=== PATIENT | female | born 1955 | race African-American/Black ===

== ENCOUNTER 2016-12-13 15:50 | Emergency (ER) | payer BC, OTHER ==
[2016-12-13 16:16] VITALS: BP 148/83
--- NOTE | 2016-12-13 17:00 | UC ---
Abdominal Pain Female HPI - HPI Summary HPI Summary: LLQ abd pain worsening today with LARA, chills, and poor appetite. No recent illness or other symptoms. Normal BM today. - History of Current Complaint Chief Complaint: UCAbdominalPain Stated Complaint: ABD PAIN,CHILLS,HEADACHE Time Seen by Provider: 12/13/16 16:30 Hx Obtained From: Patient ?: No Onset/Duration: Gradual Onset, Lasting Hours Timing: Constant Severity Initially: Mild Severity Currently: Moderate Location: Discrete At: LLQ Radiates: No Character: Aching, Cramping, Dull, Sharp Aggravating Factor(s): Nothing Alleviating Factor(s): Nothing Associated Signs and Symptoms: Positive: Fever, Decreased Appetite. Negative: Constipation, Blood in Stool, Urinary Symptoms, Vaginal Bleeding Allergies/Adverse Reactions: Allergies Allergy/AdvReac Type Severity Reaction Status Date / Time Aspirin Allergy Tinnitus Verified 12/13/16 16:09 Fluconazole [From Diflucan] Allergy Swelling Verified 12/13/16 16:09 Of Face,Lips,& Throat Home Medications: Home Medications Atorvastatin* [Lipitor*] 10 mg PO 1700 12/13/16 [History Confirmed 12/13/16] Vitamin B Complex TAB* [Complex B-100*] 1 tab PO DAILY 12/13/16 [History Confirmed 12/13/16] PMH/Surg Hx/FS Hx/Imm Hx Endocrine History Of: Denies: Diabetes, Thyroid Disease Cardiovascular History Of: Reports: Hypertension Denies: Cardiac Disorders Respiratory History Of: Denies: COPD, Asthma GI/ History Of: Reports: Gastrointestinal Bleed Denies: Ulcer - Surgical History Surgical History: Yes Surgery Procedure, Year, and Place: melissa; tonsils - Family History Known Family History: Positive: Hypertension - Social History Lives: Alone Alcohol Use: Daily Alcohol Amount: 1 glass of wine per night Substance Use Type: None Smoking Status (MU): Light Every Day Tobacco Smoker Type: Cigarettes Amount Used/How Often: 3 cigs per day Household Exposure Type: Cigarettes - Immunization History Most Recent Influenza Vaccination: never Most Recent Tetanus Shot: Within past 5 years Most Recent Pneumonia Vaccination: never Review of Systems Constitutional: Fever, Chills Skin: Negative Eyes: Negative ENT: Negative Respiratory: Negative Cardiovascular: Negative Gastrointestinal: Abdominal Pain Genitourinary: Negative Motor: Negative Neurovascular: Negative Musculoskeletal: Negative Neurological: Headache Psychological: Negative All Other Systems Reviewed And Are Negative: Yes Physical Exam Triage Information Reviewed: Yes Appearance: Well-Appearing, Well-Nourished, Pain Distress - mild Vital Signs: Initial Vital Signs Temp 100.7 F 12/13/16 16:12 Pulse 105 12/13/16 16:12 Resp 16 12/13/16 16:12 BP 148/83 12/13/16 16:12 Pulse Ox 100 12/13/16 16:12 Vital Signs Reviewed: Yes Eye Exam: Normal Eyes: Positive: Conjunctiva Clear ENT Exam: Normal ENT: Positive: Normal ENT inspection, Hearing grossly normal, Pharynx normal, TMs normal Neck exam: Normal Neck: Positive: Supple, Nontender, No Lymphadenopathy Respiratory Exam: Normal Respiratory: Positive: Chest non-tender, Lungs clear, Normal breath sounds, No respiratory distress, No accessory muscle use Cardiovascular: Positive: No Murmur, Tachycardia Musculoskeletal Exam: Normal Neurological Exam: Normal Neurological: Positive: Alert, Muscle Tone Normal Psychological Exam: Normal Skin Exam: Normal Abd Pain Female Course/Dx - Differential Dx/Diagnosis Provider Diagnoses: LLQ pain, suspect diverticulitis - Physician Notification/Consults Discussed Patient Care With: Dr. Londono Time Discussed With Above Provider: 17:04 Discharge - Discharge Plan Condition: Stable Disposition: TRANS [facility]
== END 2016-12-13 17:50 | disposition short-term general hospital (02) ==
LOC: UCEAST 15:50
DX: R10.32 Left lower quadrant pain (principal); R51 Headache; R63.0 Anorexia; Z88.8 Allergy status to other drugs, medicaments and biological substances; I10 Essential (primary) hypertension
CPT/HCPCS: 81003; 99212; G0463

== ENCOUNTER 2016-12-13 17:31 | Inpatient (IN) | payer BC, OTHER ==
[2016-12-13] MEDS ORDERED: Ondansetron INJ* 2 MG/ML VIAL IV ONE (18:03)
[2016-12-13] MEDS ORDERED: NS 0.9% 1000 ML* 1,000 ML IV ONE (18:03)
[2016-12-13] MEDS ORDERED: Morphine INJ* 4 MG/ML 1 ML SYRINGE IV ONE (18:03)
[2016-12-13 18:42] LABS: Hematocrit 43 % (35-47); Mean Corpuscular HGB Conc 33 g/dl (31-36); Mean Corpuscular Hemoglobin 29 pg (27-31); Mean Corpuscular Volume 88 fL (80-97); Mean Platelet Volume 10 um3 (7.4-10.4); Red Blood Count 4.86 10^6/ul (4.0-5.4); Red Cell Distribution Width 14 % (10.5-15); White Blood Count 16.7 10^3/ul (3.5-10.8)
[2016-12-13 18:43] LABS: Add Diff/Slide Review? Slide Review Added; Comments Flag Yes
[2016-12-13 18:58] LABS: ALT 18 U/L (7-52); AST 16 U/L (13-39); Albumin 4.1 g/dL (3.2-5.2); Alkaline Phosphatase 37 U/L (34-104); Anion Gap 8 mmol/L (2-11); BUN/Creatinine Ratio 12.9 (8-20); Blood Urea Nitrogen 11 mg/dL (6-24); C Reactive Protein 12.01 mg/L (< 5.00); CO2 Carbon Dioxide 29 mmol/L (22-32); Calcium 9.1 mg/dL (8.6-10.3); Chloride 102 mmol/L (101-111); EGFR African American 87.2 (>60); EGFR Non-African American 67.8 (>60); Globulin 3.2 g/dL (2-4); Glucose 92 mg/dL (70-100); Lipase < 10 U/L (11.0-82.0); Potassium 3.5 mmol/L (3.5-5.0); Sodium 139 mmol/L (133-145); Total Protein 7.3 g/dL (6.4-8.9)
[2016-12-13 19:07] LABS: Immature Granulocytes 16 % (0-9); Neutrophil % 75 % (38-83); RBC Morphology Normal (Normal); Reactive Lymph % 2 % (0-6)
[2016-12-13] MEDS ORDERED: NS 0.9% 1000 ML* 1,300 ML IV ONE (19:07)
[2016-12-13] MEDS ORDERED: Piperac/Tazob 3.375 gm in NS* 3.375 GM/100 ML BAG IVPB ONE (19:08)
[2016-12-13] MEDS ORDERED: Iohexol 300* (CONTRAST) 10 ML SDV IV ONE (20:08)
[2016-12-13 20:18] LABS: Urine Bacteria Absent (Absent); Urine Bilirubin Negative (Negative); Urine Glucose Negative (Negative); Urine Nitrite Negative (Negative)
--- NOTE | 2016-12-13 20:30 | RAD ---
INDICATION: Abdominal pain COMPARISON: None TECHNIQUE: Axial source images were obtained from the hemidiaphragms to the symphysis pubis following administration of oral and intravenous contrast. 100 mL Omnipaque 300 was utilized. Coronal and sagittal reconstructed images were acquired. Lung bases: The lung bases are clear. Liver: The liver is normal in size. There are no masses. There is minor intrahepatic ductal dilatation likely secondary to postcholecystectomy state. The common duct is also mildly prominent. Gallbladder: Cholecystectomy. Spleen: The spleen is normal in size. There are no masses. Pancreas: There is no focal pancreatic mass or ductal dilatation. Adrenal glands: There is no evidence of adrenal mass. Kidneys: The kidneys are normal in size and position. There are prompt nephrograms and there is prompt excretion bilaterally. There are no renal parenchymal masses. There is no evidence of nephrolithiasis. Adenopathy: There is no evidence of adenopathy by size criteria. Fluid collections: There are no free or localized fluid collections. Vessels:The IVC appears normal. There are assess chronic changes with aneurysmal dilatation of the aorta. GI tract: There are no acute CT bowel findings. There is no obstruction. The stomach and small bowel appear normal. The ileocecal valve is normal. The appendix is normal. There are moderate diverticula of the descending and sigmoid colon without CT evidence of acute diverticulitis. There is no obstruction. Pelvic organs: The uterus and adnexa appear normal Bladder: There are no bladder masses. Abdominal and pelvic soft tissues: The extraperitoneal abdominal and pelvic soft tissues appear normal.. Osseous structures: There are no acute osseous findings. Other: None IMPRESSION: Moderate diverticula but no CT evidence of acute diverticulitis. Normal appendix. No acute CT findings. No mass or inflammatory changes.
--- NOTE | 2016-12-13 20:31 | ED ---
Zoila, DoctorNeeta scribed for Ekaterina Bar MD on 12/13/16 at 1826 . Abdominal Pain/Female - HPI Summary HPI Summary: 61 year old female arrived to [facility] c/o lower left abdominal pain, chills, LARA, and backache. She reports lower abdominal pain since 11:00 today; she initially rated her pain as a 5/10 and currently rates it as 8/10. She denies any diarrhea /vomiting/dysuria but reports nausea as well as middle back pain and a subjective fever. She is a regular smoker, lives alone, and has a PMHx of HTN and gallbladder removal. - History of Current Complaint Chief Complaint: EDAbdPain Stated Complaint: SENT FROM [facility]-ABD PAIN Time Seen by Provider: 12/13/16 17:47 Hx Obtained From: Patient Onset/Duration: Gradual Onset, Still Present Timing: Hours - onset at 11:00 today Pain Intensity: 8 Pain Scale Used: 0-10 Numeric Location: Discrete At: LLQ Radiates to: Back Associated Signs and Symptoms: Positive: Back Pain, Nausea, Other: - chills, LARA. Negative: Fever, Urinary Symptoms, Vomiting, Diarrhea Allergies/Adverse Reactions: Allergies Allergy/AdvReac Type Severity Reaction Status Date / Time Aspirin Allergy Tinnitus Verified 12/13/16 17:44 Fluconazole [From Diflucan] Allergy Swelling Verified 12/13/16 17:44 Of Face,Lips,& Throat PMH/Surg Hx/FS Hx/Imm Hx Endocrine/Hematology History: Denies: Hx Diabetes, Hx Thyroid Disease Cardiovascular History: Reports: Hx Hypertension Respiratory History: Denies: Hx Asthma, Hx Chronic Obstructive Pulmonary Disease (COPD) GI History: Reports: Hx Gastrointestinal Bleed Denies: Hx Ulcer Sensory History: Reports: Hx Contacts or Glasses - glasses Opthamlomology History: Reports: Hx Contacts or Glasses - glasses - Surgical History Surgery Procedure, Year, and Place: melissa; tonsils Infectious Disease History: Yes Infectious Disease History: Reports: Hx Hepatitis - Hep C Denies: Hx Clostridium Difficile, Hx Human Immunodeficiency Virus (HIV), Hx of Known/Suspected MRSA, Hx Shingles, Hx Tuberculosis, Hx Known/Suspected VRE, Hx Known/Suspected VRSA, History Other Infectious Disease, Traveled Outside the [place] in Last 30 Days - Family History Known Family History: Positive: Hypertension, Diabetes - Social History Occupation: Employed Full-time Lives: Alone Alcohol Use: Daily Alcohol Amount: 1 glass of wine per night Substance Use Type: Reports: None Smoking Status (MU): Light Every Day Tobacco Smoker Type: Cigarettes Amount Used/How Often: 3 cigs per day Review of Systems Positive: Chills. Negative: Fever Positive: Abdominal Pain, Nausea. Negative: Vomiting, Diarrhea Negative: dysuria Positive: Other - back pain Positive: Headache All Other Systems Reviewed And Are Negative: Yes Physical Exam Triage Information Reviewed: Yes Vital Signs On Initial Exam: Initial Vitals Temp Pulse Resp BP Pulse Ox 100.1 F 101 18 134/74 100 12/13/16 17:45 12/13/16 17:45 12/13/16 17:45 12/13/16 17:45 12/13/16 17:45 Vital Signs Reviewed: Yes Appearance: Positive: Well-Appearing, No Pain Distress Skin: Positive: Warm, Skin Color Reflects Adequate Perfusion, Dry Eyes: Positive: EOMI, MADHURI ENT: Positive: Pharynx normal, TMs normal Neck: Positive: Supple, Nontender Respiratory/Lung Sounds: Positive: Clear to Auscultation, Breath Sounds Present. Negative: Rales, Rhonchi, Wheezes Cardiovascular: Positive: RRR. Negative: Murmur, Rub Abdomen Description: Negative: Nontender - LLQ Tendernes, Soft, Distended, Guarding Bowel Sounds: Positive: Present Musculoskeletal: Positive: Strength/ROM Intact. Negative: Edema Left, Edema Right Neurological: Positive: Sensory/Motor Intact, Alert, Oriented to Person Place, Time, CN Intact II-III Psychiatric: Positive: Affect/Mood Appropriate Diagnostics - Vital Signs Vital Signs Temp Pulse Resp BP Pulse Ox 12/13/16 17:45 100.1 F 101 18 134/74 100 - Laboratory Lab Results: 18:30 - Lactic Acid: 2.60 Result Diagrams: 12/13/16 18:30 12/13/16 18:30 Lab Statement: Any lab studies that have been ordered have been reviewed, and results considered in the medical decision making process. Re-Evaluation - Re-Evaluation First Eval Re-Evaluation Time: 20:08 Comment: Discussed treatment plan with pt. Agrees to be admitted to hospital under Dr. Hidalgo (Hospitalist). Abdominal Pain Fem Course/Dx - Course Course Of Treatment: 61 yo female with llq abd pain with wbc of 16 and an elevated lactic, 30cc/kg ns and zosyn given pt accepted for obv by Dr. Hidalgo - Diagnoses Provider Diagnoses: Abdominal pain - Provider Notifications Discussed Care Of Patient With: 20:00 - Discussed pt care with Dr. Hidalgo ( Hospitalist). He agrees to admit pt. Discharge - Discharge Plan Condition: Stable Disposition: ADMITTED TO [facility] The documentation as recorded by the adriánibwaqas, Neeta Gaitan accurately reflects the service I personally performed and the decisions made by me, Ekaterina Bar MD.
--- NOTE | 2016-12-13 21:08 | HP ---
H&P (Free Text) History and Physical: Discussed with Kathleen Sanchez NP. Mrs Dodge is a 61F presenting with abdominal pain, bandemia, & elevated lactic acid with a negative CT abd/pel. Will be admitted for close monitoring, empiric ABXs, & consideration of surgical consultation, if appropriate.
[2016-12-13] MEDS ORDERED: Ondansetron INJ* 2 MG/ML VIAL IV PRN (21:54)
[2016-12-13] MEDS ORDERED: Acetaminophen TAB* 325 MG PO PRN (21:54)
[2016-12-13] MEDS ORDERED: NS 0.9% 1000 ML* 1,000 ML IV SCH (22:00)
--- NOTE | 2016-12-13 22:39 | RAD ---
INDICATION: Fever and abdominal pain COMPARISON: Chest x-ray July 04, 2004 TECHNIQUE: An AP portable view obtained at 2200 hours is submitted. FINDINGS: Bones/Soft Tissues: There are no acute bony findings. Cardiomediastinal: The cardiomediastinal silhouette is normal. Lungs: There are no infiltrates. Pleura: There are no pleural effusions. Other: None IMPRESSION: NO ACTIVE DISEASE.
[2016-12-13] MEDS: Heparin VIAL(*) 5000 UNITS/ML VIAL (FIVE THOUSAND) SUBCUT SCH (23:21)
[2016-12-13] MEDS: Piperac/Tazob 3.375 gm in NS* 3.375 GM/100 ML BAG IVPB SCH (23:49)
[2016-12-13] MEDS: Morphine INJ* 2 MG/ML 1 ML SYRINGE IV PRN (23:51)
[2016-12-14] MEDS: Morphine INJ* 2 MG/ML 1 ML SYRINGE IV PRN ×3 (03:59→12:48)
--- NOTE | 2016-12-14 04:09 | HP ---
HISTORY AND PHYSICAL: DATE OF ADMISSION: 12/13/16 PRIMARY CARE PROVIDER: Dr. Lugo. ATTENDING PHYSICIAN WHILE IN THE HOSPITAL: Nav Hidalgo MD * (report dictated by Artis Sanchez NP). CHIEF COMPLAINT: Abdominal pain. HISTORY OF PRESENT ILLNESS: Mrs. Dodge is a 61-year-old female patient with a history of hypertension, GERD, hyperlipidemia, hepatitis C, tobacco abuse, and history of GI bleed in the past. She comes into the ER today stating that she, this morning, around 11 o'clock developed an onset of left lower quadrant abdominal pain described as an ache, with no associated symptom of nausea or vomiting. She says the pain has been coming and going throughout the day and intensity has been increasing. She denies having any diarrhea. No tarry stools. No blood in the stools. She denies any dysuria. No vaginal discharge. She says that the pain feels like a dull ache and she was concerned because the pain was not getting any better, she was having chills and fevers off and on, and so she decided to come into the ER to be evaluated. She says that she has not had any chest pain or shortness of breath. She denies any back pain and denied having any dysuria or any frequency. The patient presented to the ER and was ultimately found to have a fever. She appeared to be tachycardic. Since she had elevated white count with bandemia, hospitalist service was asked to evaluate for admission. PAST MEDICAL HISTORY: Significant for: 1. Hypertension. 2. Hepatitis C. 3. Tobacco abuse. 4. History of GI bleed. 5. GERD. 6. Hyperlipidemia. PAST SURGICAL HISTORY: She has had a laparoscopic cholecystectomy. HOME MEDICATIONS: According to her recall, include: 1. Amlodipine 5 mg daily. 2. Vitamin B one tablet daily. 3. Multivitamin 1 tablet daily. 4. Toprol-XL 50 mg daily. 5. Calcium carbonate one tablet daily. 6. Lipitor 10 mg daily. 7. Biotin 1 mg daily. 8. Vitamin C 500 mg daily. ALLERGIES: Her allergies to medications include ASPIRIN and DIFLUCAN. FAMILY HISTORY: Mother had a history of CVA and hypertension. Father had a history of diabetes and COPD. SOCIAL HISTORY: She is a smoker, about 3 cigarettes a day. She does drink one to two glasses of wine daily. Surrogate decision maker is her son. REVIEW OF SYSTEMS: There is no documented fever. She denied having any significant weight change. There was no double vision. There is no ear discharge. There is no rhinorrhea, no sore throat. She did admit to having again fever and chills. No dysuria, no frequency. There is no abdominal pain. There is no chest pain. No shortness of breath, no orthopnea. No loss of consciousness. No pruritus. No skin ulceration. Review of 14 systems completed, all others are negative. PHYSICAL EXAMINATION GENERAL: At this time, Mrs. Dodge is a 61-year-old female. She appears to be well nourished, well developed. She does not appear to be in any acute distress. VITAL SIGNS: Reveals blood pressure 124/74 with pulse of 101, respirations are 18, O2 sat 100%, temperature 100.1, pulse now is 94. HEENT: Head is atraumatic, normocephalic. Eyes: EOMs are intact. Sclerae anicteric, not pale. Throat: Oral mucosa appears to be moist. No oropharyngeal erythema. NECK: Supple. LUNGS: Clear to auscultation bilaterally. No wheezes, rales, or rhonchi. HEART: Sounds S1 and S2. Regular rate and rhythm. She is tachycardic. No murmurs, rubs, or gallops. ABDOMEN: Soft, flat. There is tenderness in the left lower quadrant. She did have some CVA tenderness on the left side as well. Bowel sounds are present. EXTREMITIES: Pulses were 2+ throughout. She is able to move all 4 extremities with 5/5 strength. NEUROLOGIC: The patient is awake, alert, and oriented x3. Tongue midline. Development Coordinator are equal. No gross focal deficits. SKIN: Grossly intact. LABORATORY DATA: Labs today revealed WBC of 16.7, RBC of 4.86, hemoglobin 14.0 , hematocrit of 43, platelet count 154. Sodium 139, potassium 3.5, chloride 102 , bicarb 29, BUN 11, creatinine 0.85, glucose 92, lactate 2.6, calcium 9.1, total bili 0.4, AST 16, ALT 18, alk phos 37, CRP of 12, albumin 4.1. Urine showed trace leukocyte esterase, 1+ wbc. he had an abdomen and pelvis CT scan obtained today. The CT scan obtained showed , impression: Moderate diverticula, but no CT evidence of acute diverticulitis. Normal appendix. No acute CT findings. No mass or inflammatory change. Old medical records were reviewed. ASSESSMENT AND PLAN: Mrs. Dodge is a 61-year-old female patient coming into the ER today with complaints of abdominal discomfort, on evaluation was found to be tachycardic, found to be febrile, and found to have an elevated white count. She will be admitted under observation status for: 1. Abdominal pain. The etiology is unclear. Clinically, she is tender in the left lower quadrant. She does have diverticula there. I know there is no diverticulitis on scan, but she certainly clinically could have that. I think for the time being, I will put her on Zosyn, IV normal saline at 125 an hour, she got 2 L. I will do another repeat lactic at 11 o'clock tonight. She has gotten bolus here in the ED. We will repeat her labs in the morning. We will do serial abdominal exam. She does not appear to have an acute abdomen at this point and again, if the pain does not subside after 24 hours of Zosyn, we could consider getting a surgical evaluation, if she is not improving obviously. She is not having any other associated symptoms and I have ordered p.r.n. morphine for pain. 2. Hypertension. Continue the Toprol-XL and amlodipine. 3. Hepatitis C, not an active issue. 4. History of tobacco abuse. I have offered cessation. 5. History of gastroesophageal reflux disease. She does not take medications. We will continue lifestyle modifications. 6. Hyperlipidemia. Continue statin therapy. 7. Deep venous thrombosis prophylaxis. She will be placed on heparin subcu. 8. Code status. Full code. 9. Fluids, electrolytes, nutrition. Clear liquid diet. TIME SPENT: Time spent on admission 60 minutes, greater than half the time spent [id number] with the patient obtaining my history and physical, the other half of the time spent going over the plan of care with the patient and implementing plan of care. I did discuss the plan of care with my attending, Dr. Hidalgo. He is in agreement. ARTIS SANCHEZ NP CC: Dr. Lugo * [id number]/[facility] #: [id number] MTDD
[2016-12-14 06:02] LABS: Hematocrit 34 % (35-47); Hemoglobin 11.4 g/dl (12.0-16.0); Mean Corpuscular HGB Conc 33 g/dl (31-36); Mean Corpuscular Hemoglobin 29 pg (27-31); Mean Corpuscular Volume 87 fL (80-97); Mean Platelet Volume 9 um3 (7.4-10.4); Red Blood Count 3.96 10^6/ul (4.0-5.4); Red Cell Distribution Width 15 % (10.5-15); White Blood Count 15.1 10^3/ul (3.5-10.8)
[2016-12-14] MEDS: Heparin VIAL(*) 5000 UNITS/ML VIAL (FIVE THOUSAND) SUBCUT SCH ×3 (06:15→22:43)
[2016-12-14 06:16] LABS: BUN/Creatinine Ratio 10.9 (8-20); Calcium 7.9 mg/dL (8.6-10.3); EGFR African American 79.5 (>60); EGFR Non-African American 61.9 (>60); Potassium 3.3 mmol/L (3.5-5.0)
[2016-12-14] MEDS: Piperac/Tazob 3.375 gm in NS* 3.375 GM/100 ML BAG IVPB SCH ×2 (07:58→16:06)
--- NOTE | 2016-12-14 08:47 | PN ---
Subjective Date of Service: 12/14/16 Interval History: . Patient reports her abdominal pain is "much much better" but still c/o left and right Lower abdominal pain, described as cramping. Reports pain 2. No N/V/D. Last BM yesterday and was normal. Denies any bloody stools. Reports she is hungry. Reports chills yesterday that have resolved, no known fevers but is noted to have low grade temps since admission but she states she feels asymptomatic to this. Denies SOB, CP. Denies urinary urgency, frequency or burning. Objective Active Medications: Acetaminophen (Tylenol Tab*) 650 mg PO Q4H PRN PRN Reason: FEVER/PAIN Amlodipine Besylate (Norvasc Tab*) 5 mg PO DAILY [facility] Atorvastatin Calcium (Lipitor*) 10 mg PO 1700 [facility] Heparin Sodium (Porcine) (Heparin Vial(*)) 5,000 units SUBCUT Q8HR [facility] Last Admin: 12/14/16 06:15 Dose: Not Given Piperacillin Sod/Tazobactam Sod (Zosyn 3.375 Gm In Ns Premix*) 3.375 gm in 100 mls @ 25 mls/hr IVPB Q8H [facility] Last Admin: 12/14/16 07:58 Dose: 25 mls/hr Metoprolol Succinate (Toprol Xl Tab*) 50 mg PO DAILY [facility] Morphine Sulfate (Morphine Inj (Syringe)*) 2 mg IV Q4H PRN PRN Reason: PAIN - MILD Last Admin: 12/14/16 03:59 Dose: 2 mg Ondansetron HCl (Zofran Inj*) 4 mg IV Q6H PRN PRN Reason: NAUSEA Vital Signs 12/13/16 12/13/16 12/13/16 22:00 22:28 22:29 Temperature 100.2 F Pulse Rate 92 94 Respiratory 16 16 Rate Blood Pressure 124/62 139/82 (mmHg) O2 Sat by Pulse 97 99 Oximetry 12/13/16 12/13/16 12/14/16 22:54 23:51 00:51 Temperature 100.2 F Pulse Rate 94 Respiratory 16 16 16 Rate Blood Pressure 139/82 (mmHg) O2 Sat by Pulse 98 Oximetry 12/14/16 12/14/16 12/14/16 03:59 04:00 04:59 Temperature 99.9 F Pulse Rate 82 Respiratory 16 16 16 Rate Blood Pressure 121/62 (mmHg) O2 Sat by Pulse 100 Oximetry 12/14/16 07:17 Temperature 99.1 F Pulse Rate 85 Respiratory 16 Rate Blood Pressure 130/72 (mmHg) O2 Sat by Pulse 99 Oximetry Oxygen Devices in Use Now: None Appearance: 61 yo female laying in bed in NAD. A+O x3 Eyes: No Scleral Icterus, PERRLA Ears/Nose/Mouth/Throat: NL Teeth, Lips, Gums, Mucous Membranes Moist Neck: NL Appearance and Movements; NL JVP Respiratory: Symmetrical Chest Expansion and Respiratory Effort, Clear to Auscultation Cardiovascular: NL Sounds; No Murmurs; No JVD, RRR, No Edema Abdominal: No Hepatosplenomegaly, - - soft, nondistended, tender to palpation right and left lower quads. No rebound tenderness or guarding. Lymphatic: No Cervical Adenopathy Extremities: No Edema, No Clubbing, Cyanosis Skin: No Rash or Ulcers, No Nodules or Sclerosis Neurological: Alert and Oriented x 3, NL Muscle Strength and Tone Lines/Tubes/Other Access: Clean, Dry and Intact Peripheral IV Nutrition: Taking PO's Result Diagrams: 12/14/16 05:52 12/14/16 05:52 Additional Lab and Data: 18:30 - Lactic Acid: 2.60 Microbiology and Other Data: Microbiology 12/13/16 22:48 Influenza Types A,B Antigen (KYLEIGH) - Final Nasal Specimen received for Influenza A/B Molecular testing Assess/Plan/Problems-Billing Assessment: 61 yo female with a PMH of HTN, Hep C, current tobacco abuse, Hx of GI bleed who preseted to the ED on 12/13 with c/o abdominal pain. - Patient Problems (1) Abdominal pain Comment: -Much improved since admission, unclear etiology. CT abdomen negative for acute pathology. Presented with leukocytosis of 16K and bands 16 and lactic acid 2.6 - now improving after IVFs and abx. Low grade fevers since admission. Blood cx pending. - plan to advanced diet and monitor. - check labs in am. - continue zosyn - If she develops worsening pain will ask for surgical consult. (2) HTN (hypertension) Comment: - controlled on norvasc and metoprolol. (3) Tobacco abuse Comment: - nicotine replacement - smoking cessation (4) Hepatitis C Comment: - not an active issue (5) DVT prophylaxis Comment: HSQ (6) Full code status Status and Disposition: inpatient with abdominal pain. Plan to DC to home when stable.
[2016-12-14] MEDS: amLODIPine TAB* 5 MG PO SCH (09:19)
[2016-12-14] MEDS: Metoprolol Succinate XL TAB* 50 MG PO SCH (09:19)
[2016-12-14] MEDS: KCL 20 MEQ/100 ML IVPREMIX* 20 MEQ/100 ML BAG IV SCH ×2 (14:07→22:42)
[2016-12-14] MEDS: Nicotine PATCH 14 MG/24 HR* PATCH TRANSDERM SCH (15:56)
[2016-12-14] MEDS ORDERED: Atorvastatin* 10 MG TAB PO SCH (17:00)
[2016-12-14] MEDS ORDERED: Nicotine Patch Removal NOTE PATCH OFF SCH (21:00)
[2016-12-14] MEDS ORDERED: Nicotine Patch Removal NOTE FOLLOW UP SCH (21:00)
[2016-12-15] MEDS: Piperac/Tazob 3.375 gm in NS* 3.375 GM/100 ML BAG IVPB SCH ×2 (01:46→08:16)
[2016-12-15 05:01] LABS: Hematocrit 34 % (35-47); Hemoglobin 11.4 g/dl (12.0-16.0); Mean Corpuscular HGB Conc 33 g/dl (31-36); Mean Corpuscular Hemoglobin 29 pg (27-31); Mean Corpuscular Volume 87 fL (80-97); Mean Platelet Volume 9 um3 (7.4-10.4); Red Blood Count 3.94 10^6/ul (4.0-5.4); Red Cell Distribution Width 14 % (10.5-15); White Blood Count 9.7 10^3/ul (3.5-10.8)
[2016-12-15 05:03] LABS: Add Diff/Slide Review? Slide Review Added
[2016-12-15 05:16] LABS: C Reactive Protein 73.51 mg/L (< 5.00); Calcium 8.2 mg/dL (8.6-10.3); EGFR African American 90.8 (>60); EGFR Non-African American 70.6 (>60); Potassium 3.8 mmol/L (3.5-5.0)
[2016-12-15 05:32] LABS: Immature Granulocytes 8 % (0-9); Neutrophil % 65 % (38-83); RBC Morphology Normal (Normal); Reactive Lymph % 1 % (0-6)
[2016-12-15] MEDS: Heparin VIAL(*) 5000 UNITS/ML VIAL (FIVE THOUSAND) SUBCUT SCH (05:44)
[2016-12-15 08:06] VITALS: BP 98/79
[2016-12-15] MEDS: amLODIPine TAB* 5 MG PO SCH (08:16)
[2016-12-15] MEDS: Metoprolol Succinate XL TAB* 50 MG PO SCH (08:16)
[2016-12-15] MEDS: Nicotine PATCH 14 MG/24 HR* PATCH TRANSDERM SCH (08:18)
--- NOTE | 2016-12-15 11:10 | DCNOTE ---
Subjective Date of Service: 12/15/16 Interval History: Pt reports she feels much better today, increased appetite eating a full breakfast this morning. Mild right and left "cramping abdominal pain" but reports it is almost resolved. No further fever, denies chills. Reports 1 episode of diarrhea this morning reports loose brown stool, no blood noted. No n /v. Denies SOB, CP, cough. Would like to go home today. Objective Active Medications: Acetaminophen (Tylenol Tab*) 650 mg PO Q4H PRN PRN Reason: FEVER/PAIN Amlodipine Besylate (Norvasc Tab*) 5 mg PO DAILY [facility] Last Admin: 12/15/16 08:16 Dose: 5 mg Atorvastatin Calcium (Lipitor*) 10 mg PO 1700 [facility] Last Admin: 12/14/16 17:41 Dose: 10 mg Heparin Sodium (Porcine) (Heparin Vial(*)) 5,000 units SUBCUT Q8HR [facility] Last Admin: 12/15/16 05:44 Dose: Not Given Piperacillin Sod/Tazobactam Sod (Zosyn 3.375 Gm In Ns Premix*) 3.375 gm in 100 mls @ 25 mls/hr IVPB Q8H [facility] Last Admin: 12/15/16 08:16 Dose: 25 mls/hr Metoprolol Succinate (Toprol Xl Tab*) 50 mg PO DAILY [facility] Last Admin: 12/15/16 08:16 Dose: 50 mg Morphine Sulfate (Morphine Inj (Syringe)*) 2 mg IV Q4H PRN PRN Reason: PAIN - MILD Last Admin: 12/14/16 12:48 Dose: 2 mg Nicotine (Nicotine Patch 14 Mg/24 Hr*) 1 patch TRANSDERM Q24HR [facility] Last Admin: 12/15/16 08:18 Dose: Not Given Ondansetron HCl (Zofran Inj*) 4 mg IV Q6H PRN PRN Reason: NAUSEA Pharmacy Profile Note (Nicotine Patch Removal Note*) 1 note PATCH OFF 2100 [facility] Last Admin: 12/14/16 19:43 Dose: Not Given Vital Signs 12/14/16 12/14/16 12/14/16 12:48 13:48 16:02 Temperature 99.3 F Pulse Rate 78 Respiratory 16 16 12 Rate Blood Pressure 118/67 (mmHg) O2 Sat by Pulse 100 Oximetry 12/14/16 12/14/16 12/14/16 18:33 19:38 20:00 Temperature 99.8 F Pulse Rate 86 Respiratory 16 16 Rate Blood Pressure 125/67 (mmHg) O2 Sat by Pulse 97 98 Oximetry 12/14/16 12/15/16 12/15/16 23:08 00:00 03:10 Temperature 99.6 F 99.2 F Pulse Rate 79 73 Respiratory 16 Rate Blood Pressure 134/73 130/69 (mmHg) O2 Sat by Pulse 96 96 97 Oximetry 12/15/16 12/15/16 07:13 07:22 Temperature 98.4 F Pulse Rate 75 Respiratory 16 Rate Blood Pressure 98/79 (mmHg) O2 Sat by Pulse 99 99 Oximetry Oxygen Devices in Use Now: None Appearance: 61 yo well developed female laying in bed A+O x3 in NAD Eyes: No Scleral Icterus, PERRLA Ears/Nose/Mouth/Throat: NL Teeth, Lips, Gums, Mucous Membranes Moist Neck: NL Appearance and Movements; NL JVP Respiratory: Symmetrical Chest Expansion and Respiratory Effort, Clear to Auscultation Cardiovascular: NL Sounds; No Murmurs; No JVD, RRR, No Edema Abdominal: NL Sounds; No Tenderness; No Distention, No Hepatosplenomegaly Extremities: No Edema, No Clubbing, Cyanosis Skin: No Rash or Ulcers, No Nodules or Sclerosis Neurological: Alert and Oriented x 3, NL Sensation, NL Gait, NL Muscle Strength and Tone Lines/Tubes/Other Access: Clean, Dry and Intact Peripheral IV Nutrition: Taking PO's Result Diagrams: 12/15/16 04:51 12/15/16 04:51 Additional Lab and Data: 18:30 - Lactic Acid: 2.60 Microbiology and Other Data: Microbiology 12/13/16 22:48 Influenza Types A,B Antigen (KYLEIGH) - Final Nasal Specimen received for Influenza A/B Molecular testing Assess/Plan/Problems-Billing Assessment: 61 yo female with a PMH of HTN, Hep C, current tobacco abuse, Hx of GI bleed who preseted to the ED on 12/13 with c/o abdominal pain. - Patient Problems (1) Abdominal pain Comment: -Much improved since admission, almost resolved, unclear etiology, possible viral syndrome? CT abdomen negative for acute pathology. Presented with leukocytosis of 16K and bands 16 and lactic acid 2.6 - now resolved. Low grade fevers since admission now resolved. Blood cx no growth Day 1. Urine cx growing group B strep with colony count 10-25K, low suspicion for acute UTI most likely colonized. - Tolerating diet (2) HTN (hypertension) Comment: - controlled on norvasc and metoprolol. (3) Tobacco abuse Comment: - nicotine replacement - smoking cessation (4) Hepatitis C Comment: - not an active issue (5) DVT prophylaxis Comment: HSQ (6) Full code status Status and Disposition: inpatient with abdominal pain. Plan to DC to home today
--- NOTE | 2016-12-16 01:50 | DS ---
DISCHARGE SUMMARY: DATE OF ADMISSION: 12/13/16 DATE OF DISCHARGE: 12/15/16 ATTENDING PHYSICIAN: Dr. Fitzpatrick *(report is dictated by Juan Bernstein NP) PRIMARY CARE PROVIDER: Dr. Lugo. PRIMARY DIAGNOSES: 1. Abdominal pain, unclear etiology. 2. Positive urine culture for group B strep only with colony count of 10,000 to 25,000. 3. Tobacco abuse. SECONDARY DIAGNOSES: 1. Hypertension. 2. History of hepatitis C. 3. History of GI bleed. 4. Gastroesophageal reflux disease. 5. Hyperlipidemia. DISCHARGE MEDICATIONS: 1. Amlodipine 5 mg p.o. daily. 2. Vitamin B complex 1 tab p.o. daily. 3. Multivitamin/mineral 1 tab p.o. daily. 4. Metoprolol succinate-XL 50 mg p.o. daily. 5. Calcium carbonate Plus D 1 tab p.o. daily. 6. Biotin 1 mg p.o. daily. 7. Lipitor 10 mg p.o. daily. 8. Vitamin C 500 mg p.o. daily. New medications at discharge: 1. Augmentin 875 mg p.o. b.i.d. x5 days. HISTORY OF PRESENT ILLNESS AND HOSPITAL COURSE: Please see history and physical by Chuy Sanchez NP, for full admission details, but in summary this is a 61-year-old female who presented to the emergency department on 12/13/16 with report of acute onset of left lower quad abdominal pain described as an ache with no associated symptoms of nausea, vomiting or diarrhea. She reports the pain had been coming and going throughout the day and the intensity had been increasing. The patient reported possible chills and fevers on and off and decided to come to the emergency department for further evaluation. In the emergency department, the patient was noted to have a temperature of 100.2, WBC 16.7,000, bands of 16, lactic acid of 2.6. The patient was also noted to be mildly tachycardic with the heart rate of 101. The patient was admitted to the hospitalist service. Unclear etiology behind the patient's abdominal pain. She underwent an abdomen and pelvis CT with contrast, which showed "moderate diverticula but no CT evidence of acute diverticulitis. Normal appendix. No acute CT findings. No mass or inflammatory changes." The patient was started on Zosyn and monitored on the medical floor. Yesterday on evaluation, the patient continued to have a noted white blood cell count of 15.1,000; however, her bands had resolved as well as lactic acidosis. She was noted to have low-grade temps of 99; however, clinically the patient reported that she was much better and wanted to advance her diet. She continued to complain of some right and left lower quadrant intermittent cramping, but states overall she is much better. Overnight, the patient's leukocytosis resolved as well as her low- grade fever. She reports that her abdominal pain is mostly gone. She continues to have mild right and left lower pain, but states that it is pretty much resolved. The patient is noted to have a urine culture result today showing strep group B with colony count of 10,000 to 25,000. I discussed this case with my attending physician, Dr. Fitzpatrick. We both agree that due to how the patient presented and how she is improved on Zosyn, the patient will be sent on Augmentin for a 5-day course. It is unclear the etiology behind her abdominal pain, it is possible this is a viral syndrome. I have lower suspicion that she has a urinary tract infection. She has no other urinary signs and symptoms, but where she is experiencing pain, it is possible this is a cystitis. The patient was instructed to return to the emergency department with any worsening or concerning symptoms. At this time, she is stable for discharge to home with close followup with her primary. It was noted that her CRP on admission was 12.01 and on recheck yesterday was 73.51. Again, clinically the patient has greatly improved over the past 24 hours and is stable for discharge to home. DISCHARGE PLAN: 1. Follow up with primary care provider, Dr. Lugo, on 12/18/16 at 10.30 am. 2. Plan for a 5-day course of Augmentin. 3. The patient has been given a work note to return to work when her symptoms have completely resolved. As well as increase her fluid intake and if she has any worsening or concerning symptoms including worsening abdominal pain, nausea , vomiting, diarrhea or fevers that she should be seen immediately. TIME SPENT: Approximately 60 minutes was spent on this discharge. Her case was reviewed with attending physician, Dr. Fitzpatrick, who agrees with the plan of care. JUAN BERNSTEIN NP CC: Dr. Lugo* [id number]/[facility] #: [id number] [facility]
--- NOTE | 2016-12-16 15:41 | ED ---
I, Neeta Gaitan, scribed for Ekaterina Bar MD on 12/13/16 at 2040 . Progress - Results/Orders Results/Orders: CT A/P Read by Radiologist. IMPRESSION: Moderate diverticula but no CT evidence of acute diverticulitis. Normal appendix. No acute CT findings. No mass or inflammatory changes. - EKG/XRAY/CT CT: CT A/P Re-Evaluation - Re-Evaluation First Eval Re-Evaluation Time: 20:08 Comment: Discussed treatment plan with pt. Agrees to be admitted to hospital under Dr. Hidalgo (Hospitalist). Course/Dx - Course Course Of Treatment: 61 yo female with llq abd pain with wbc of 16 and an elevated lactic, 30cc/kg ns and zosyn given pt accepted for obv by Dr. Hidalgo - Diagnoses Provider Diagnoses: Abdominal pain - Provider Notifications Discussed Care Of Patient With: 20:00 - Discussed pt care with Dr. Hidalgo ( Hospitalist). He agrees to admit pt. The documentation as recorded by the scribe, Neeta Gaitan accurately reflects the service I personally performed and the decisions made by me, Ekaterina Bar MD.
== END 2016-12-15 13:20 | disposition home or self-care (01) | DRG 463 ==
LOC: ED 17:31 → MED 21:49 → INTOOBSV 12-14 11:46 → OBSVTOIN 12-14 11:46
PROVIDERS: ADMIT Hospitalist; ATTEND Hospitalist
DX: N30.90 Cystitis, unspecified without hematuria (principal); E87.2 Acidosis; B34.9 Viral infection, unspecified; K57.90 Diverticulosis of intestine, part unspecified, without perforation or abscess without bleeding; R51 Headache; M54.9 Dorsalgia, unspecified; I10 Essential (primary) hypertension; Z88.6 Allergy status to analgesic agent; Z88.8 Allergy status to other drugs, medicaments and biological substances; B19.20 Unspecified viral hepatitis C without hepatic coma; Z82.49 Family history of ischemic heart disease and other diseases of the circulatory system; Z83.3 Family history of diabetes mellitus; F17.210 Nicotine dependence, cigarettes, uncomplicated; K21.9 Gastro-esophageal reflux disease without esophagitis; E78.5 Hyperlipidemia, unspecified; Z82.3 Family history of stroke; Z83.6 Family history of other diseases of the respiratory system; B95.1 Streptococcus, group B, as the cause of diseases classified elsewhere
CPT/HCPCS: 36415; 71010; 74177; 80048; 80053; 81003; 81015; 83605; 83690; 85025; 85610; 86140; 87040; 87077; 87086; 87502; 94760; 99212; A9270-GY; G0378; G0463; J1644; J2270; J2405; J2543; J3480; Q9967

== ENCOUNTER 2018-08-03 10:14 | Emergency (ER) | payer BC, OTHER ==
[2018-08-03 10:28] VITALS: BP 145/85
--- NOTE | 2018-08-03 10:29 | UC ---
Lower Extremity/Ankle HPI - HPI Summary HPI Summary: 63 yo female presents with RIGHT knee and hip pain s/p slipping this morning. She tells me that she was walking down the stairs and slipped on the snow and "jammed" her right leg, but did not fall. Had immediate pain in her right hip and knee. Currently her knee is bothering her more and pain is worse with extension. She is ambulatory without assistance, but has a noticeable limp. She is unsure if her knee feels unstable as it just "hurts" when she bears weight. She has not taken anything OTC for her discomfort. Denies numbness or tingling. - History of Current Complaint Chief Complaint: UCLowerExtremity Stated Complaint: LEG/HIP/KNEE INJURY Time Seen by Provider: 08/03/18 10:29 Hx Obtained From: Patient Onset/Duration: Sudden Onset Severity Initially: Severe Severity Currently: Severe Pain Intensity: 9 Pain Scale Used: 0-10 Numeric Aggravating Factor(s): Standing Alleviating Factor(s): Rest Able to Bear Weight: Yes - Allergies/Home Medications Allergies/Adverse Reactions: Allergies Allergy/AdvReac Type Severity Reaction Status Date / Time aspirin Allergy Tinnitus Verified 08/03/18 10:29 fluconazole [From Diflucan] Allergy anaph Verified 08/03/18 10:29 PMH/Surg Hx/FS Hx/Imm Hx - Additional Past Medical History Additional PMH: Hep C Endocrine History: Dyslipidemia Cardiovascular History: Hypertension - Surgical History Surgical History: Yes Surgery Procedure, Year, and Place: melissa; tonsils - Family History Known Family History: Positive: Hypertension, Diabetes - Social History Lives: With Family Alcohol Use: Occasionally Alcohol Amount: 1 glass of wine per night Substance Use Type: None Smoking Status (MU): Light Every Day Tobacco Smoker Type: Cigarettes Amount Used/How Often: 3 cigs per day Have You Smoked in the Last Year: Yes Household Exposure Type: Cigarettes - Immunization History Most Recent Influenza Vaccination: never Most Recent Tetanus Shot: Within past 5 years Most Recent Pneumonia Vaccination: 2016 Review of Systems All Other Systems Reviewed And Are Negative: Yes Constitutional: Positive: Negative Respiratory: Positive: Negative Cardiovascular: Positive: Negative Neurovascular: Positive: Negative Musculoskeletal: Positive: Other: - Right hip and knee pain Neurological: Positive: Negative Psychological: Positive: Negative Physical Exam - Summary Physical Exam Summary: GENERAL: NAD. WDWN. No pain distress. SKIN: No rashes, sores, lesions, or open wounds. CHEST: No accessory muscle use. Breathing comfortably and in no distress. CV: . Pulses intact popliteal, PT, and DP. Cap refill <2seconds MSK: RIGHT KNEE: Mild TTP over tibial plateau. FROM, but pain with extension. Strength 5/5. No edema or obvious bony deformities. Slight increased laxity during anterior drawer waxer RIGHT compared to left. No patella apprehension. Negative Sophie, P drawer, Leila, and varus/valgus stress. RIGHT HIP: FROM without pain. NTTP. Positive SLR for low back pain without radiation. NEURO: Alert. Sensations intact and symmetric B/L LEs PSYCH: Age appropriate behavior. Triage Information Reviewed: Yes Vital Signs: Initial Vital Signs Temp 97.8 F 08/03/18 10:26 Pulse 71 08/03/18 10:26 Resp 16 08/03/18 10:26 BP 145/85 08/03/18 10:26 Pulse Ox 99 08/03/18 10:26 Vital Signs Reviewed: Yes Lower Extremity Course/Dx - Course Course Of Treatment: Right knee XR: IMPRESSION: SMALL JOINT EFFUSION, NO FRACTURE IS SEEN. Suspect knee strain. Advised to RICE and take tylenol for pain. If her symptoms do not improve, please follow up with PT and Orthopedics for further evaluation. Pt declined crutches today as she has some at home and will use them prn. - Differential Dx/Diagnosis Provider Diagnosis: Right knee sprain Discharge - Sign-Out/Discharge Documenting (check all that apply): Patient Departure All imaging exams completed and their final reports reviewed: Yes - Discharge Plan Condition: Stable Disposition: HOME Patient Education Materials: Knee Sprain (DC) Forms: *Work Release Referrals: Ashley Lugo MD [Primary Care Provider] - Deyanira Rouse MD [Medical Doctor] - If Needed Additional Instructions: If you develop a fever, shortness of breath, chest pain, new or worsening symptoms - please call your PCP or go to the ED. Your blood pressure was high at todays visit. Please see your primary provider within 4 weeks for recheck and re-evaluation. 1) Rest, Ice, and elevate your knee as much as possible 2) If your symptoms do not improve within the next week - please follow up with Physical Therapy and Orthopedics. - Billing Disposition and Condition Condition: STABLE Disposition: Home
== END 2018-08-03 11:30 | disposition home or self-care (01) ==
LOC: UCEAST 10:14
DX: S83.91XA Sprain of unspecified site of right knee, initial encounter (principal); W18.49XA Other slipping, tripping and stumbling without falling, initial encounter; Y92.9 Unspecified place or not applicable; Z88.6 Allergy status to analgesic agent; Z88.1 Allergy status to other antibiotic agents; F17.210 Nicotine dependence, cigarettes, uncomplicated
CPT/HCPCS: 99211; G0463